=== PATIENT | male | born 1965 | race Caucasian/White ===

== ENCOUNTER 2021-09-16 08:28 | Inpatient (IN) | payer MEDICAID ==
[~2021-09-16] VITALS: Ht 172.7 cm; Wt 60.1 kg
[2021-09-16] MEDS ORDERED: ASPIRIN 325MG EC TABLET PO ONE (09:15)
[2021-09-16 09:41] LABS: BASOPHILS % 0.4 % (0.0-2.0); EOSINOPHILS % 0.5 % (0.0-5.0); HEMATOCRIT. 41.7 % (42.0-52.0); HEMOGLOBIN. 14.4 g/dL (14.0-18.0); LYMPHOCYTES % 20.2 % (20.0-50.0); MEAN CORPUSCULAR HEMOGLOBIN 32.4 pg (28.0-32.0); MEAN CORPUSCULAR VOLUME 93.5 fL (80.0-94.0); MEAN PLATELET VOLUME 8.5 fl (7.4-10.4); MONOCYTES % 6.6 % (2.0-8.0); NEUTROPHILS % 72.3 % (40.0-76.0); PLATELET 208 x1000/uL (130-400); RED BLOOD CELL COUNT 4.46 mill/uL (4.7-6.1); RED CELL DISTRIBUTION WIDTH 12.3 % (11.6-14.6)
[2021-09-16 09:45] LABS: INR 0.9; PARTIAL THROMBOPLASTIN TIME 25.4 sec (23.4-31.0)
[2021-09-16 09:48] LABS: CHLORIDE 99 mEq/L (98-107)
[2021-09-16 09:59] LABS: ETHANOL BLOOD < 10 mg/dL
[2021-09-16] MEDS ORDERED: SODIUM CHLORIDE 0.9% 1,000 ML IV NR (10:30)
[2021-09-16 12:00] VITALS: BP 112/67
[2021-09-16 12:55] VITALS: BP 112/67
[2021-09-16 14:39] LABS: *AMPHETAMINES SCREEN URINE NEGATIVE (NEGATIVE); *BARBITURATES SCREEN URINE NEGATIVE (NEGATIVE); *BENZODIAZEPINES SCREEN URINE NEGATIVE (NEGATIVE); *COCAINE SCREEN URINE PRESUMTIVE POSITIVE (NEGATIVE); CANNABINOID URINE SCREEN NEGATIVE (NEGATIVE); METHADONE URINE SCREEN NEGATIVE (NEGATIVE); OPIATES URINE SCREEN NEGATIVE (NEGATIVE); PHENCYCLIDINE URINE SCREEN NEGATIVE (NEGATIVE)
[2021-09-16] MEDS ORDERED: HYDROCODONE/ACETAMINOPHEN 10/325MG TABLET PO PRN (15:00)
[2021-09-16] MEDS ORDERED: LORAZEPAM 0.5MG TABLET PO PRN (15:00)
[2021-09-16] MEDS ORDERED: DOCUSATE SODIUM 100MG CAPSULE PO PRN (15:00)
[2021-09-16] MEDS ORDERED: IPRATROPIUM/ALBUTEROL 0.5-3(2.5)MG/3ML NEB HHN PRN (15:00)
[2021-09-16] MEDS ORDERED: ONDANSETRON HCL 4MG/2ML INJ IV PRN (15:00)
[2021-09-16] MEDS ORDERED: MORPHINE SULFATE 2 MG/ML CPJ (NOT FOR IM USE) IV PRN (15:00)
[2021-09-16] MEDS ORDERED: HYDROCODONE/ACETAMINOPHEN 5/325MG TABLET PO PRN (15:00)
[2021-09-16] MEDS ORDERED: CLONIDINE 0.1MG TABLET PO PRN (15:00)
[2021-09-16] MEDS ORDERED: ACETAMINOPHEN 325MG TABLET PO PRN ×2 (15:00)
[2021-09-16] MEDS ORDERED: NALOXONE HCL 0.4MG/ML VIAL IV PRN (15:15)
[2021-09-16] MEDS ORDERED: DEXTROSE 50% WATER 50ML SYRINGE IV PRN (15:30)
[2021-09-16] MEDS ORDERED: ACET-2708 PO (15:39)
[2021-09-16 16:00] VITALS: BP 124/39
[2021-09-16] MEDS: BLOOD SUGAR DIAGNOSTIC STRIP TEST SCH ×2 (17:11→21:00)
[2021-09-16] MEDS: NICOTINE 21MG PATCH TD SCH (17:22)
[2021-09-16] MEDS: INSULIN LISPRO 100 UNITS/ML SUBCUT SCH ×2 (17:23→21:46)
[2021-09-16] MEDS ORDERED: INSULIN LISPRO 100 UNITS/ML SUBCUT NR (18:06)
[2021-09-16 20:00] VITALS: BP 115/66
[2021-09-17] VITALS: BP 108/64
[2021-09-17 04:00] VITALS: BP 110/62
[2021-09-17] MEDS: BLOOD SUGAR DIAGNOSTIC STRIP TEST SCH ×4 (06:34→21:00)
[2021-09-17 07:15] LABS: BASOPHILS % 0.5 % (0.0-2.0); EOSINOPHILS % 1.6 % (0.0-5.0); HEMATOCRIT. 42.7 % (42.0-52.0); HEMOGLOBIN. 14.7 g/dL (14.0-18.0); LYMPHOCYTES % 30.4 % (20.0-50.0); MEAN CORPUSCULAR HEMOGLOBIN 32.5 pg (28.0-32.0); MEAN CORPUSCULAR VOLUME 94.5 fL (80.0-94.0); MEAN PLATELET VOLUME 8.6 fl (7.4-10.4); MONOCYTES % 7.5 % (2.0-8.0); PLATELET 213 x1000/uL (130-400); RED BLOOD CELL COUNT 4.52 mill/uL (4.7-6.1); RED CELL DISTRIBUTION WIDTH 12.4 % (11.6-14.6)
[2021-09-17] MEDS: INSULIN LISPRO 100 UNITS/ML SUBCUT SCH ×4 (07:18→21:31)
[2021-09-17 07:46] LABS: CHLORIDE 102 mEq/L (98-107)
[2021-09-17 08:00] VITALS: BP 117/61
[2021-09-17] MEDS: NICOTINE 21MG PATCH TD SCH (09:05)
[2021-09-17 12:00] VITALS: BP 111/65
[2021-09-17] MEDS: FOLIC ACID 1MG TABLET PO SCH (13:04)
[2021-09-17] MEDS: MULTIVITAMINS,THER W-MINERALS TABLET PO SCH (13:04)
[2021-09-17] MEDS: THIAMINE HCL 100MG TABLET PO SCH (13:04)
[2021-09-17] MEDS: INSULIN GLARGINE 100 UNITS/ML SUBCUT SCH ×2 (13:07→21:33)
[2021-09-17] MEDS: CHLORDIAZEPOXIDE 25MG CAPSULE PO SCH ×2 (14:38→21:31)
[2021-09-17 16:00] VITALS: BP 112/66
[2021-09-17 20:00] VITALS: BP 101/55
[2021-09-17 23:45] LABS: CLARITY URINE CLEAR (CLEAR); COLOR URINE YELLOW (YELLOW); KETONES URINE NEGATIVE (NEGATIVE); LEUKOCYTE ESTERASE URINE NEGATIVE (NEGATIVE); NITRITE URINE NEGATIVE (NEGATIVE); OCCULT BLOOD URINE NEGATIVE (NEGATIVE); PH URINE 5.5 (4.5-8.0); PROTEIN URINE NEGATIVE (NEGATIVE); SPECIFIC GRAVITY URINE 1.019 (1.005-1.030); UROBILINOGEN URINE 0.2 E.U./dL (0.2-1.0)
[2021-09-18] VITALS: BP 103/55
[2021-09-18 04:00] VITALS: BP 112/63
[2021-09-18] MEDS: BLOOD SUGAR DIAGNOSTIC STRIP TEST SCH ×3 (06:07→21:00)
[2021-09-18] MEDS: CHLORDIAZEPOXIDE 25MG CAPSULE PO SCH ×3 (06:07→21:19)
[2021-09-18 06:18] LABS: BASOPHILS % 0.5 % (0.0-2.0); EOSINOPHILS % 1.6 % (0.0-5.0); HEMATOCRIT. 41.5 % (42.0-52.0); HEMOGLOBIN. 14.1 g/dL (14.0-18.0); LYMPHOCYTES % 28.2 % (20.0-50.0); MEAN CORPUSCULAR HEMOGLOBIN 32.1 pg (28.0-32.0); MEAN CORPUSCULAR VOLUME 94.2 fL (80.0-94.0); MEAN PLATELET VOLUME 8.9 fl (7.4-10.4); MONOCYTES % 7.8 % (2.0-8.0); NEUTROPHILS % 61.9 % (40.0-76.0); PLATELET 195 x1000/uL (130-400); RED BLOOD CELL COUNT 4.41 mill/uL (4.7-6.1); RED CELL DISTRIBUTION WIDTH 12.4 % (11.6-14.6)
[2021-09-18 06:20] LABS: CHLORIDE 100 mEq/L (98-107)
[2021-09-18 08:00] VITALS: BP 110/65
[2021-09-18] MEDS: MULTIVITAMINS,THER W-MINERALS TABLET PO SCH (08:25)
[2021-09-18] MEDS: NICOTINE 21MG PATCH TD SCH (08:26)
[2021-09-18] MEDS: FOLIC ACID 1MG TABLET PO SCH (08:26)
[2021-09-18] MEDS: THIAMINE HCL 100MG TABLET PO SCH (08:26)
[2021-09-18] MEDS: INSULIN LISPRO 100 UNITS/ML SUBCUT SCH ×4 (08:27→21:19)
[2021-09-18] MEDS: INSULIN GLARGINE 100 UNITS/ML SUBCUT SCH ×2 (11:15→21:18)
[2021-09-18 12:00] VITALS: BP 116/61
[2021-09-18 16:00] VITALS: BP 101/60
[2021-09-18 20:00] VITALS: BP 90/50
[2021-09-19] VITALS: BP 93/52
[2021-09-19 04:00] VITALS: BP 102/58
[2021-09-19] MEDS: CHLORDIAZEPOXIDE 25MG CAPSULE PO SCH ×3 (06:06→21:19)
[2021-09-19] MEDS: BLOOD SUGAR DIAGNOSTIC STRIP TEST SCH ×4 (07:07→21:16)
[2021-09-19 08:00] VITALS: BP 108/60
[2021-09-19] MEDS: FOLIC ACID 1MG TABLET PO SCH (08:32)
[2021-09-19] MEDS: THIAMINE HCL 100MG TABLET PO SCH (08:32)
[2021-09-19] MEDS: NICOTINE 21MG PATCH TD SCH (08:32)
[2021-09-19] MEDS: MULTIVITAMINS,THER W-MINERALS TABLET PO SCH (08:32)
[2021-09-19] MEDS: INSULIN LISPRO 100 UNITS/ML SUBCUT SCH ×4 (08:33→21:18)
[2021-09-19] MEDS: INSULIN GLARGINE 100 UNITS/ML SUBCUT SCH ×2 (10:41→21:19)
[2021-09-19 12:00] VITALS: BP 101/58
[2021-09-19 16:00] VITALS: BP 105/59
[2021-09-19 20:00] VITALS: BP 104/63
[2021-09-20] VITALS: BP 101/54
[2021-09-20 04:00] VITALS: BP 102/58
[2021-09-20] MEDS: CHLORDIAZEPOXIDE 25MG CAPSULE PO SCH (05:29)
[2021-09-20] MEDS: BLOOD SUGAR DIAGNOSTIC STRIP TEST SCH ×2 (06:22→12:42)
[2021-09-20 08:00] VITALS: BP 99/56
[2021-09-20] MEDS: INSULIN LISPRO 100 UNITS/ML SUBCUT SCH ×2 (08:31→12:53)
[2021-09-20] MEDS: FOLIC ACID 1MG TABLET PO SCH (09:04)
[2021-09-20] MEDS: MULTIVITAMINS,THER W-MINERALS TABLET PO SCH (09:04)
[2021-09-20] MEDS: THIAMINE HCL 100MG TABLET PO SCH (09:04)
[2021-09-20] MEDS ORDERED: LANTUSUD SUBCUT (10:41)
[2021-09-20] MEDS ORDERED: ATOR10TA69 MT (10:41)
[2021-09-20] MEDS: INSULIN GLARGINE 100 UNITS/ML SUBCUT SCH (11:07)
[2021-09-20] MEDS: NICOTINE 21MG PATCH TD SCH (11:08)
[2021-09-20 12:00] VITALS: BP 90/55
[2021-09-20 12:08] VITALS: BP 97/47
[2021-09-21 04:08] LABS: NEISSERIA GONORRHOEAE NAA Negative (Negative)
== END 2021-09-20 13:56 | disposition home or self-care (01) | DRG 420 ==
LOC: ER 10:02 → 7WST 10:53 → ENRESERV 11:32
PROVIDERS: ADMIT Internal Medicine; ATTEND Internal Medicine
DX: E11.65 Type 2 diabetes mellitus with hyperglycemia (principal); I20.0 Unstable angina; I42.9 Cardiomyopathy, unspecified; I44.7 Left bundle-branch block, unspecified; F14.90 Cocaine use, unspecified, uncomplicated; E78.5 Hyperlipidemia, unspecified; F10.20 Alcohol dependence, uncomplicated; Z20.822 Contact with and (suspected) exposure to COVID-19; F17.210 Nicotine dependence, cigarettes, uncomplicated; R00.1 Bradycardia, unspecified; R63.4 Abnormal weight loss; Y90.9 Presence of alcohol in blood, level not specified; R06.00 Dyspnea, unspecified; Z68.20 Body mass index [BMI] 20.0-20.9, adult; Z71.6 Tobacco abuse counseling
CPT/HCPCS: 36415; 71045; 80048; 80053; 80061; 80305; 80320; 81003; 82962; 83036; 83880; 84443; 84484; 85025; 87426; 87491; 87591; 93005; 93306; 99291; C9803; J1815; G0480

== ENCOUNTER 2022-09-09 21:52 | Emergency (ER) | payer MEDICAID ==
[~2022-09-09] VITALS: Ht 172.7 cm; Wt 73.0 kg
[~2022-09-09 21:52] MED LIST: ACET-2708 PO; ATOR10TA69 MT; LANTUSUD SUBCUT
[2022-09-09 22:41] VITALS: O2SAT 99
[2022-09-09 23:28] LABS: CHLORIDE 108 mEq/L (98-107)
[2022-09-09 23:34] LABS: BASOPHILS % 0.6 % (0.0-2.0); EOSINOPHILS % 3.3 % (0.0-5.0); HEMATOCRIT. 40.7 % (42.0-52.0); LYMPHOCYTES % 30.9 % (20.0-50.0); MEAN CORPUSCULAR VOLUME 95.8 fL (80.0-94.0); MONOCYTES % 7.8 % (2.0-8.0); NEUTROPHILS % 57.4 % (40.0-76.0); PLATELET 181 x1000/uL (130-400); RED BLOOD CELL COUNT 4.25 mill/uL (4.7-6.1); RED CELL DISTRIBUTION WIDTH 12.7 % (11.6-14.6)
[2022-09-10 00:27] LABS: CLARITY URINE CLEAR (CLEAR); COLOR URINE DARK YELLOW (YELLOW); KETONES URINE TRACE (NEGATIVE); LEUKOCYTE ESTERASE URINE NEGATIVE (NEGATIVE); NITRITE URINE NEGATIVE (NEGATIVE); OCCULT BLOOD URINE NEGATIVE (NEGATIVE); PH URINE 5.5 (4.5-8.0); PROTEIN URINE NEGATIVE (NEGATIVE); SPECIFIC GRAVITY URINE 1.039 (1.005-1.030)
[2022-09-10] MEDS ORDERED: IBUP-2028 MT (03:39)
[2022-09-10] MEDS ORDERED: GABA300C MT (03:39)
[2022-09-10 03:48] VITALS: BP 134/74; PULSE 78; RESP 16; TEMP 97.9
== END 2022-09-10 03:53 | disposition home or self-care (01) ==
LOC: ER 21:52
DX: R07.89 Other chest pain (principal); E11.9 Type 2 diabetes mellitus without complications; I10 Essential (primary) hypertension; E78.00 Pure hypercholesterolemia, unspecified; Z98.890 Other specified postprocedural states
CPT/HCPCS: 36415; 71045; 80053; 81003; 84484; 85025; 93005; 99285